=== PATIENT | male | born 1995 | race Caucasian/White ===

== ENCOUNTER 2018-04-15 19:23 | Emergency (ER) | payer OTHER ==
[~2018-04-15] VITALS: Ht 188 cm; Wt 131.5 kg
[2018-04-15] MEDS ORDERED: MEDROLDOSEPACK PO (19:38)
[2018-04-15] MEDS ORDERED: ROBAXIN500 MG PO (19:38)
[2018-04-15] MEDS ORDERED: IBUPROFEN 800800 M1 PO (19:38)
[2018-04-15 20:05] VITALS: BP 138/76
== END 2018-04-15 20:06 | disposition home or self-care (01) ==
LOC: M.ERS 19:23
DX: M54.41 Lumbago with sciatica, right side (principal); G89.29 Other chronic pain; F17.200 Nicotine dependence, unspecified, uncomplicated; Z88.0 Allergy status to penicillin